=== PATIENT | male | born 2000 | race Caucasian/White ===

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

== ENCOUNTER 2024-06-18 07:29 | Emergency (ER) | payer MEDICAID ==
[2024-06-18] MEDS: Aspirin 81 MG Tab.Chew PO ONE (07:47)
[2024-06-18 07:48] LABS: HEMATOCRIT 50.7 % (38.4-49.7); HEMOGLOBIN 17.3 g/dL (12.9-16.9); MEAN CORPUSCULAR HEMOGLOBIN 29.8 pg (31.6-35.5); MEAN CORPUSCULAR HGB CONC 34.1 g/dL (31.6-35.5); MEAN CORPUSCULAR VOLUME 87.3 fL (81.4-99.0); PLATELET COUNT,PLT 230 K/uL (130-375); RED BLOOD CELL COUNT 5.81 M/uL (4.14-5.76); WHITE BLOOD CELL COUNT,WBC 10.3 K/uL (3.2-11.0)
[2024-06-18 07:49] LABS: BASE EXCESS ARTERIAL -7.1 mm/L; BICARBONATE,ARTERIAL 10.4 mmol/L (22.0-26.0); CARBOXYHEMOGLOBIN 1.8 % (0.0-1.6); METHEMOGLOBIN 0.9 %; O2 SATURATION ARTERIAL > 99.3 % (95.0-98.0); PCO2 ARTERIAL 9.8 mmHg (35.0-42.0); TOTAL HEMOGLOBIN 16.9 g/dL (13.5-18.0)
[2024-06-18] MEDS ORDERED: Norepinephrine Bit/D5W Premix 250 ML ONE (07:50)
[2024-06-18] MEDS: Norepinephrine Bit/D5W Premix 4 MG in Premix Bag 1 BAG IV SCH (07:59)
[2024-06-18] MEDS ORDERED: Etomidate 2 MG/ML 10 ML SDV ONE (08:02)
[2024-06-18 08:05] LABS: A/G RATIO 1.3 (1.2-2.2); ALANINE AMINOTRANSFERASE,ALT 59 U/L (12-78); ALBUMIN 4.2 g/dL (3.4-5.0); ALKALINE PHOSPHATASE 64 U/L (46-116); ANION GAP 16.8 mmol/L (5.0-14.0); ASPARTATE AMNIOTRANSFERASE,AST 40 U/L (15-37); BILIRUBIN TOTAL 0.3 mg/dL (0.2-1.0); BLOOD UREA NITROGEN,BUN 24 mg/dL (7-18); CALCIUM 9.7 mg/dL (8.5-10.1); CARBON DIOXIDE,CO2 21 mmol/L (21-32); CHLORIDE,CL 104 mmol/L (100-108); CREATININE 1.7 mg/dL (0.8-1.3); EST CRCL DRUG DOSING (CG) 74.81 mL/min; ESTIMATED GFR 58 mL/min (>60); GLUCOSE RANDOM 253 mg/dL (74-106); POTASSIUM,K 3.9 mmol/L (3.6-5.2); PROTEIN TOTAL,TP 7.5 g/dL (6.4-8.2); SODIUM,NA 142 mmol/L (140-148)
[2024-06-18] MEDS ORDERED: Heparin Sodium 5,000 Units/ML Vial ONE (08:05)
[2024-06-18] MEDS: Amiodarone 150 MG/3 ML SDV IVPUSH ONE (08:08)
[2024-06-18] MEDS: Heparin Sodium 5,000 Units/ML Vial IVPUSH ONE (08:10)
[2024-06-18 08:11] LABS: EOSINOPHILS ABSOLUTE MAN 0.21 K/uL (0.00-0.40); EOSINOPHILS PERCENT MAN 2 % (2-4); LYMPHOCYTES ABSOLUTE MAN 5.25 K/uL (0.8-3.3); LYMPHOCYTES PERCENT MAN 51 % (24-44); MONOCYTES ABSOLUTE MAN 0.62 K/uL (0.20-0.90); MONOCYTES PERCENT MAN 6 % (2-6); NEUTROPHILS ABSOLUTE MAN 4.22 K/uL (1.0-7.6); SEG NEUTROPHILS PERCENT MAN 41 % (36-66)
[2024-06-18] MEDS ORDERED: Amiodarone 150 MG/100 ML 150 MG in Premix Bag 1 BAG IV ONE (08:15)
[2024-06-18] MEDS: Furosemide 20 MG/2 ML VIAL IVPUSH ONE (08:16)
[2024-06-18] MEDS ORDERED: Furosemide 20 MG/2 ML VIAL ONE (08:16)
[2024-06-18] MEDS ORDERED: Albuterol 0.083% 2.5 MG/3 ML Neb Soln ONE (08:18)
[2024-06-18] MEDS: Albuterol 0.083% 2.5 MG/3 ML Neb Soln INH ONE (08:25)
[2024-06-18] MEDS ORDERED: Lidocaine 1% 10 ML MDV ONE (08:28)
[2024-06-18] MEDS ORDERED: Lidocaine 1% 10 ML MDV INJECT ONE (08:28)
[2024-06-18] MEDS: Amiodarone 360 MG/200 ML 360 MG/200 ML BAG IV SCH (08:30)
[2024-06-18] MEDS: Heparin Sodium 5,000 UNITS in Sodium Chloride 0.9% 500 ML IV SCH (08:30)
[2024-06-18 08:40] LABS: APPEARANCE,URINE CLEAR (CLEAR); BILIRUBIN,URINE NEGATIVE (NEGATIVE); COLOR,URINE YELLOW (YELLOW); GLUCOSE,URINE NEGATIVE (NEGATIVE); KETONES,URINE NEGATIVE (NEGATIVE); LEUKOCYTE ESTERASE,URINE NEGATIVE (NEGATIVE); NITRITE,URINE NEGATIVE (NEGATIVE); OCCULT BLOOD,URINE NEGATIVE (NEGATIVE); PROTEIN,URINE TRACE mg/dL (NEGATIVE); UROBILINOGEN,URINE 0.2 EU/dL (0.2-1.0)
[2024-06-18] MEDS: Ondansetron 4 MG/2 ML SDV IVPUSH ONE (08:46)
[2024-06-18] MEDS ORDERED: Ondansetron 4 MG/2 ML SDV ONE (08:46)
[2024-06-18 08:50] LABS: AMORPHOUS SEDIMENT,URINE NOT SEEN; BACTERIA,URINE RARE; EPITHELIAL CELLS,URINE FEW; MUCUS,URINE NOT SEEN; RBC,URINE 0-5 (0-5); WBC,URINE 0-5 (0-5)
[2024-06-18 08:59] LABS: AMPHETAMINES SCREEN, URINE NEGATIVE (NEGATIVE); BARBITURATE SCREEN,URINE NEGATIVE (NEGATIVE); BENZODIAZEPINES SCREEN,URINE NEGATIVE (NEGATIVE); METHADONE SCREEN, URINE NEGATIVE (NEGATIVE); METHAMPHETAMINES SCREEN, URINE NEGATIVE (NEGATIVE); OXYCODONE SCREEN,URINE NEGATIVE (NEGATIVE); PROPOXYPHENE SCREEN,URINE NEGATIVE (NEGATIVE); THC SCREEN,URINE 50 NG/ML PRESUMPTIVE POSITIVE (NEGATIVE)
[2024-06-18 09:27] LABS: CORONAVIRUS COVID-19 NAA NEGATIVE (NEGATIVE); INFLUENZA A NAA NEGATIVE (NEGATIVE); INFLUENZA B NAA NEGATIVE (NEGATIVE); RESPIRATORY SYNCYTIAL VIR NAA NEGATIVE (NEGATIVE)
[2024-06-18 09:27] LABS: TROPONIN I HIGH SENSITIVITY 18048.3 pg/mL (<=60.3)
[2024-06-18] MEDS: Sodium Chloride 0.9% 500 ML IV ONE (10:26)
[2024-06-18 11:49] VITALS: BP 67/53; PULSE 110
== END 2024-06-18 09:15 ==
LOC: JP.ED 07:29
DX: I47.20 Ventricular tachycardia, unspecified (principal); I95.9 Hypotension, unspecified; R79.89 Other specified abnormal findings of blood chemistry
CPT/HCPCS: 0241U; 36415; 36600; 51702; 71045; 80053; 80305; 81001; 82803; 82947; 83605; 83880; 84484; 85025; 85379; 87040; 94640; 96365; 96368; 96375; 96376; 99291; 99292; A9270; J0282; J1644; J1940; J2405; J7040; 36620; 93010; 99285